=== PATIENT | male | born 1960 | race Caucasian/White ===

== ENCOUNTER 2017-06-30 06:48 | Day surgery (SDC) | payer OTHER, MEDICAID ==
[2017-06-30] MEDS ORDERED: LIDOCAINE 1% 2 ML INJ ID PRN (07:08)
[2017-06-30] MEDS ORDERED: LR 1,000 ML IV ONE (07:08)
[2017-06-30] MEDS ORDERED: PROPOFOL/EMULSION 500 MG/50 ML BOTTLE IV ONE (07:54)
[2017-06-30] MEDS ORDERED: LIDOCAINE 2% 5 ML SDV ONE (07:54)
--- NOTE | 2017-06-30 08:07 | PDGENHP ---
History & Physical Chief Complaint: Rectal pain Relevant Physical Exam: GEN: NAD. Cardiac: RRR. Lungs: CTA B. Soft: soft, nt , nd
[2017-06-30] MEDS ORDERED: fentaNYL 100 MCG/2 ML INJ IVP PRN (08:22)
[2017-06-30] MEDS ORDERED: ALBUTEROL 3 ML DEYVIAL IH PRN (08:22)
[2017-06-30] MEDS ORDERED: LR 500 ML IV PRN (08:22)
[2017-06-30] MEDS ORDERED: ONDANSETRON 4 MG/2 ML VIAL IVP PRN (08:22)
[2017-06-30] MEDS ORDERED: NALOXONE HCL 0.4 MG/ML INJ IVP PRN (08:22)
--- NOTE | 2017-06-30 08:22 | PDANEPAE ---
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 Denies CP,SOB. - Pulmonary History Hx COPD: No Hx Asthma/Reactive Airway Disease: No Hx Recent Upper Respiratory Infection: No Hx Oxygen in Use at Home: Yes O2 in Use at Home (L/minute): O2 at 4L w/CPAP Hx Sleep Apnea: Yes Sleep Apnea Screening Result - Last Documented: Positive Pulmonary History Comment: DANYELL-uses CPAP. - Neurologic History Hx Cerebrovascular Accident: No Hx Seizures: No Hx Dementia: No - Endocrine History Hx Diabetes: Yes Endocrine History Comment: IDDM dx -. better control of DM- higher blood sugars. Hypothyroid - Renal History Hx Renal Disorders: No Renal History Comment: nocturia x4-5 - Liver History Hx Hepatic Disorders: No - Neurological & Psychiatric Hx Hx Neurological and Psychiatric Disorders: No - Cancer History Hx Cancer: No - Congenital Disorder History Hx Congenital Disorders: No - GI History Hx Gastrointestinal Disorders: Yes Gastrointestinal History Comment: rectal bleeding, blood in stool. - Chronic Pain History Chronic Pain: No - Surgical History Prior Surgeries: R knee scope. L kidney donated ANE Review of Systems Review of Systems: - Exercise capacity METS (RN): 4 METS ANE Patient History - Allergies Allergies/Adverse Reactions: No Known Allergies Allergy (Verified 06/16/17 16:38) - Home Medications Home Medications: Aspirin EC [Aspirin EC 81 mg (*)] 81 mg PO DAILY 07/14/16 [Last Taken 06/29/17] Cholecalciferol Vit D3 [Vitamin D3 (*)] 5,000 units PO DAILY 07/14/16 [Last Taken 06/26/17] Lisinopril [Zestril 40 mg (*)] 40 mg PO DAILY 07/14/16 [Last Taken 06/30/17] Metoprolol Succinate Xr [Toprol Xl 50 mg (*)] 50 mg PO DAILY 07/14/16 [Last Taken 06/30/17] [place]-3 Fatty Acids [Fish Oil 1000 mg (*)] 3,000 mg PO DAILY 07/14/16 [Last Taken 06/28/17] Rosuvastatin Calcium [Crestor] 10 mg PO DAILY 07/14/16 [Last Taken 06/29/17] amLODIPine BESYLATE [Norvasc 10 mg (*)] 10 mg PO DAILY 07/14/16 [Last Taken ] Furosemide 06/16/17 [Last Taken 06/28/17] Victoza 3-Ray 06/16/17 [Last Taken 06/29/17] - NPO status NPO Since - Liquids (Date): 06/30/17 NPO Since - Liquids (Time): 06:00 NPO Since - Solids (Date): 06/28/17 NPO Since - Solids (Time): 23:00 - Smoking Hx Smoking Status: Former smoker ANE Labs/Vital Signs - Vital Signs Blood Pressure: 113/81 Heart Rate: 71 Respiratory Rate: 18 O2 Sat (%): 90 Height: 200.66 cm Weight: 165.561 kg ANE Physical Exam - Airway Neck exam: FROM, decreased ROM, increased neck circumference, short neck Mallampati Score: Class 3 Mouth exam: normal dental/mouth exam, zambrano - Pulmonary Pulmonary: no respiratory distress, reduced air movement - Cardiovascular Cardiovascular: regular rate and rhythym, no murmur, rub, or gallop, systolic murmur - ASA Status ASA Status: IV ANE Anesthesia Plan Anesthesia Plan: GA with mask
--- NOTE | 2017-06-30 08:45 | GIREPORT ---
[facility] Surgical Services - Endoscopy Department Patient Name: Tutu Varner Procedure Date: 06/30/2017 8:11 AM Patient Type: Outpatient Attending MD/ ER Physician: Juan R Orta MD Procedure: Colonoscopy Indications: Hematochezia. His last colonoscopy was 3 years ago. Providers: Juan R Orta MD Medicines: Monitored Anesthesia Care Complications: No immediate complications. Description of Procedure: After obtaining informed consent, the scope was passed under direct vis ion. Throughout the procedure, the patient's blood pressure, pulse, and oxyg en saturations were monitored continuously. The Colonoscope with irrigatio n channel was introduced through the anus and advanced to the cecum, identified by appendiceal orifice and ileocecal valve. The colonoscopy was performed without difficulty. The patient tolerated the procedure well. The quality of the bowel preparation was good. Findings: The perianal and digital rectal examinations were normal. A 2 mm polyp was found in the sigmoid colon. The polyp was sessile. The polyp was removed with a cold biopsy forceps. Resection and retrieval w ere complete. Verification of patient identification for the specimen was d one by the physician and nurse using the patient's name and date. Estimated blood loss was minimal. Multiple small and large-mouthed diverticula were found in the sigmoid colon and descending colon. The retroflexed view of the distal rectum and anal verge was normal and showed no anal or rectal abnormalities. Estimated Blood Loss: Estimated blood loss: none. Post Op Diagnosis: - One 2 mm polyp in the sigmoid colon, removed with a cold biopsy force ps. Resected and retrieved. - Diverticulosis in the sigmoid colon and in the descending colon. - The distal rectum and anal verge are normal on retroflexion view. Recommendation: - Discharge patient to home (with escort). - High fiber diet. - Continue present medications. - Repeat colonoscopy in 5-10 years for surveillance based on pathology results. If the polyp is found to be adenomatous, a repeat colonoscopy in 5 years is recommended. If the polyp is found to be benign tissue or hyperplastic polyp a repeat colonoscopy in 10 years is recommended. - Your pathology results are available within 10 days. - Thank you for allowing me to participate in the care of your patient. Attending Participation: I personally performed the entire procedure. Juan R Orta MD Juan R Orta MD 06/30/2017 8:45:24 AM This report has been signed electronicallyJuan R Orta MD Number of Addenda: 0 Note Initiated On: 06/30/2017 8:11 AM Total Procedure Duration Time 0 hours 23 minutes 8 seconds [email or web address]
--- NOTE | 2017-06-30 08:52 | POSTANESTH ---
Post Anesthetic Evaluation Cardiovascular Status: Normal, Stable Respiratory Status: Normal, Stable Level of Consciousness/Mental Status: Can Participate in Eval Pain Control: Adequate, Prn Tx Ordered Nausea/Vomiting Control: Adequate, Prn Tx Ordered Complications Possibly Related to Anesthesia: None Noted
[2017-06-30] MEDS ORDERED: PROPOFOL 200 MG/20 ML VIAL ONE (09:03)
[2017-06-30 09:40] VITALS: PULSE 63
[2017-06-30 09:45] VITALS: RESP 16
[2017-06-30 09:49] VITALS: BP 124/76; TEMP 97.9; O2SAT 91
== END 2017-06-30 09:30 | disposition home or self-care (01) ==
LOC: FSGY 06:48
PROVIDERS: ATTEND Internal Medicine Gastroenterology
PROC: 0DBN8ZX Excision of Sigmoid Colon, Via Natural or Artificial Opening Endoscopic, Diagnostic (ICD-10-PCS; principal; 2017-06-30 08:15)
DX: K63.5 Polyp of colon (principal); K57.30 Diverticulosis of large intestine without perforation or abscess without bleeding
CPT/HCPCS: J2704

== ENCOUNTER → 2018-08-27 | Outpatient (CLI) | payer OTHER, MEDICAID | LOC: BHFA 11:30 | PROVIDERS: ATTEND Internal Medicine Cardiovascular Disease | DX: I48.91 Unspecified atrial fibrillation (principal) ==

== ENCOUNTER → 2018-09-06 | Outpatient (CLI) | payer OTHER, MEDICAID | LOC: FCPNEURO 21:00 | PROVIDERS: ATTEND Psychiatry & Neurology Sleep Medicine | DX: G47.33 Obstructive sleep apnea (adult) (pediatric) (principal); G47.34 Idiopathic sleep related nonobstructive alveolar hypoventilation; G47.61 Periodic limb movement disorder ==